=== PATIENT | female | born 1980 ===

== ENCOUNTER 2020-09-05 23:11 | Emergency (ER) | payer SELFPAY ==
[2020-09-05] MEDS ORDERED: diphenhydrAMINE 50 MG/ML VIAL ONE (23:26)
[2020-09-05] MEDS ORDERED: Metoclopramide HCl 10 MG/2 ML VIAL ONE (23:26)
== END 2020-09-06 00:50 | disposition home or self-care (01) ==
LOC: ERS 23:11
DX: U07.1 COVID-19 (principal)
CPT/HCPCS: 96365; 96375; J1200; J2765